=== PATIENT | male | born 1955 | race Caucasian/White ===

== ENCOUNTER 2019-02-19 09:10 | Emergency (ER) | payer OTHER ==
[~2019-02-19] VITALS: Ht 182.9 cm; Wt 86.2 kg
[2019-02-19 10:16] LABS: Basophils # (auto) 0 uL; Basophils % (auto) 0.3 % (0.0-2.0); Eosinophils # (auto) 0.5 uL; Eosinophils % (auto) 4.2 % (0.0-7.0); Hematocrit 46.2 % (41.0-53.0); Hemoglobin 15.7 g/dL (13.5-17.5); Lymphocytes # (auto) 2.8 uL; Lymphocytes % (auto) 25.6 % (10.0-50.0); Mean Corpuscular Hemoglobin 32.1 pg (28.0-32.0); Mean Corpuscular Hgb Conc. 33.9 g/dL (32.0-36.0); Mean Corpuscular Volume 94.4 fL (80.0-100.0); Monocytes # (auto) 0.6 uL; Monocytes % (auto) 5.6 % (0.0-12.0); Neutrophils # (auto) 7.1 uL; Neutrophils % (auto) 64.3 % (37.0-80.0); Nucleated Red Blood Cells % 0.1 %; Platelet Count (auto) 176 10^3/uL (140-450); Red Blood Cells 4.89 10^6/uL (4.5-5.90); Red Cell Distribution Width 13.1 % (11.8-14.3)
[2019-02-19] MEDS ORDERED: SODIUM CHLORIDE 0.9% 500 ML IV ONE (10:25)
[2019-02-19 10:26] LABS: Albumin 4.1 g/dL (3.4-5.0); BUN/Creatinine Ratio 9.6; Calcium 8.9 mg/dL (8.5-10.1); Potassium 3.7 mmol/L (3.5-5.1)
[2019-02-19 10:29] LABS: Bilirubin, Total 0.9 mg/dL (0.2-1.0); Total Protein 7.4 g/dL (6.4-8.2)
[2019-02-19] MEDS ORDERED: ALBUTEROL SULF 2.5 MG/0.5ML(0.5%) NEB SOLN HHN ONE ×2 (10:30→13:15)
[2019-02-19] MEDS ORDERED: IPRATROPIUM BROM 0.5 MG/2.5ML INH SOL HHN ONE (10:30)
[2019-02-19] MEDS ORDERED: LEVOFLOXACIN 500MG 100 ML IV ONE (10:30)
[2019-02-19] MEDS ORDERED: methylPREDNISolone SOD SUCC 125 MG/2 ML VL IV ONE (10:30)
[2019-02-19 11:41] LABS: INR 0.97 (0.9-1.15); Partial Thromboplastin Time 24.5 sec (23.64-32.05)
[2019-02-19] MEDS ORDERED: IOHEXOL 350 MG/ML 100ML IJ ONE (12:20)
[2019-02-19] MEDS ORDERED: ALBUTEROL SULF 2.5 MG/0.5ML(0.5%) NEB SOLN NEB ONE (15:00)
[2019-02-19 17:07] VITALS: BP 146/84
== END 2019-02-19 17:22 | disposition short-term general hospital (02) ==
LOC: EDBD 09:10 → ER 09:20
DX: J40 Bronchitis, not specified as acute or chronic (principal); R09.02 Hypoxemia; E78.5 Hyperlipidemia, unspecified; J44.9 Chronic obstructive pulmonary disease, unspecified; F11.10 Opioid abuse, uncomplicated
CPT/HCPCS: 36415; 36600; 71046; 71275; 80053; 82805; 83880; 84484; 85025; 85379; 85610; 85730; 87040; 93005; 94640; 94761; 96365; 96375; 99285; J1956; J2930; J7030; J7611; J7644; Q9967

== ENCOUNTER 2020-07-27 00:47 | Observation (INO) | payer MEDICARE, OTHER ==
[~2020-07-27] VITALS: Ht 182.9 cm; Wt 86.0 kg
[2020-07-27] MEDS ORDERED: ONDANSETRON HCL 4 MG/2 ML VIAL IV ONE (03:15)
[2020-07-27] MEDS ORDERED: MORPHINE SULFATE 4 MG/ML SYR/VIAL IV ONE (03:15)
[2020-07-27 03:20] LABS: Urine WBC None Seen /hpf (0 - 3)
[2020-07-27 03:34] LABS: Urine Bacteria FEW /hpf (None Seen); Urine Blood Negative /uL (Negative); Urine Specific Gravity 1.014 (1.001-1.035)
[2020-07-27 04:14] LABS: Basophils # (auto) 0 10 ^3/uL (0-0.2); Basophils % (auto) 0.3 % (0.0-2.0); Eosinophils # (auto) 0.4 10 ^3/uL (0-0.8); Eosinophils % (auto) 2.4 % (0.0-7.0); Hemoglobin 14.6 g/dL (13.5-17.5); Lymphocytes # (auto) 1.6 10 ^3/uL (0.4-5.4); Lymphocytes % (auto) 10.2 % (10.0-50.0); Mean Corpuscular Hemoglobin 31.5 pg (28.0-32.0); Mean Corpuscular Hgb Conc. 33.9 g/dL (32.0-36.0); Mean Corpuscular Volume 92.9 fL (80.0-100.0); Monocytes # (auto) 1.1 10 ^3/uL (0-1.3); Monocytes % (auto) 7.3 % (0.0-12.0); Neutrophils # (auto) 12.4 10 ^3/uL (1.6-8.6); Neutrophils % (auto) 79.8 % (37.0-80.0); Nucleated Red Blood Cells % 0.1 %; Platelet Count (auto) 175 10^3/uL (140-450); Red Blood Cells 4.63 10^6/uL (4.5-5.90); Red Cell Distribution Width 12.6 % (11.8-14.3); White Blood Cell 15.6 10^3/uL (4.4-10.8)
[2020-07-27 04:33] LABS: Albumin 4.1 g/dL (3.4-5.0); Calcium 8.8 mg/dL (8.5-10.1); Magnesium 2.2 mg/dL (1.6-2.6); Potassium 3.9 mmol/L (3.5-5.1)
[2020-07-27 04:34] LABS: BUN/Creatinine Ratio 11.4
[2020-07-27 04:37] LABS: Bilirubin, Total 0.7 mg/dL (0.2-1.0); Total Protein 7.5 g/dL (6.4-8.2)
[2020-07-27 05:01] LABS: INR 0.95 (0.9-1.15)
[2020-07-27] MEDS ORDERED: AMLO5TAB15 PO (06:29)
[2020-07-27] MEDS ORDERED: TRAZ-181 PO (06:29)
[2020-07-27] MEDS ORDERED: LOS25T PO (06:29)
[2020-07-27] MEDS ORDERED: TRAZ50TA2 PO (06:29)
[2020-07-27] MEDS ORDERED: ATOR20TA50 PO (06:29)
[2020-07-27] MEDS ORDERED: ONDANSETRON HCL 4 MG/2 ML VIAL IV PRN (06:30)
[2020-07-27] MEDS ORDERED: TEMAZEPAM 15 MG CAP PO PRN (06:30)
[2020-07-27] MEDS ORDERED: NITROGLYCERIN 0.4 MG SL TAB SL PRN (06:30)
[2020-07-27] MEDS ORDERED: DOCUSATE SOD 100 MG CAP PO PRN (06:30)
[2020-07-27] MEDS ORDERED: MORPHINE SULFATE 4 MG/ML SYR/VIAL IV PRN (06:30)
[2020-07-27] MEDS ORDERED: MORPHINE SULF INJ 2 MG/ML SYRINGE 1ML IV PRN (06:30)
[2020-07-27 08:33] LABS: Amphetamine Screen, Urine POSITIVE (NEGATIVE); Barbiturate Scree,Urine NEGATIVE (NEGATIVE); Benzodiazephine Screen, Urine NEGATIVE (NEGATIVE); Cannabinoid Screen, Urine POSITIVE (NEGATIVE); Cocaine Screen, Urine NEGATIVE (NEGATIVE); Opiate Scree,Urine POSITIVE (NEGATIVE); Phencyclidine Screen, Urine NEGATIVE (NEGATIVE)
[2020-07-27 08:46] LABS: Alcohol, Urine < 3.0 mg/dL (0-10)
[2020-07-27] MEDS: amLODIPine BESYLATE 5 MG TAB PO SCH (10:05)
[2020-07-27] MEDS: LOSARTAN POTASSIUM 25 MG TAB PO SCH (10:05)
[2020-07-27] MEDS: FAMOTIDINE 20 MG TAB PO SCH ×2 (10:06→20:37)
[2020-07-27] MEDS ORDERED: GADOTERATE MEG 10 MMOL/20ml INJ (0.5MMOL/ml) IV ONE (12:47)
[2020-07-27 17:00] VITALS: BP 129/88
[2020-07-27 17:40] VITALS: BP 129/88
[2020-07-27] MEDS ORDERED: MELO1TAB73 PO (18:13)
[2020-07-27] MEDS ORDERED: LACTULOSE 20Gm/30ML SOLN PO ONE (20:00)
[2020-07-27] MEDS ORDERED: hydrALAZINE HCL 20 MG/ML VL IV PRN (20:00)
[2020-07-27] MEDS: HYDROcodone-ACET 5/325MG TAB PO PRN (20:31)
[2020-07-27] MEDS: GABAPENTIN 100 MG CAP PO SCH (20:37)
[2020-07-27] MEDS ORDERED: ATORVASTATIN 20 MG TAB PO SCH (22:00)
[2020-07-28 05:00] VITALS: BP 118/72
[2020-07-28 05:42] LABS: Basophils # (auto) 0.1 10 ^3/uL (0-0.2); Basophils % (auto) 0.5 % (0.0-2.0); Eosinophils # (auto) 0.1 10 ^3/uL (0-0.8); Eosinophils % (auto) 1.2 % (0.0-7.0); Hematocrit 41.5 % (41.0-53.0); Hemoglobin 14.3 g/dL (13.5-17.5); Lymphocytes # (auto) 1.9 10 ^3/uL (0.4-5.4); Lymphocytes % (auto) 17.2 % (10.0-50.0); Mean Corpuscular Hemoglobin 31.7 pg (28.0-32.0); Mean Corpuscular Hgb Conc. 34.4 g/dL (32.0-36.0); Monocytes % (auto) 9.1 % (0.0-12.0); Neutrophils # (auto) 7.8 10 ^3/uL (1.6-8.6); Nucleated Red Blood Cells % 0.1 %; Platelet Count (auto) 174 10^3/uL (140-450); Red Blood Cells 4.52 10^6/uL (4.5-5.90); White Blood Cell 10.8 10^3/uL (4.4-10.8)
[2020-07-28 06:00] LABS: Albumin 3.1 g/dL (3.4-5.0); Calcium 8.7 mg/dL (8.5-10.1); Potassium 3.5 mmol/L (3.5-5.1)
[2020-07-28 06:03] LABS: BUN/Creatinine Ratio 16.3; Bilirubin, Total 0.8 mg/dL (0.2-1.0); Total Protein 6.3 g/dL (6.4-8.2)
[2020-07-28 08:00] VITALS: BP 112/71
[2020-07-28 08:55] VITALS: BP 112/71
[2020-07-28] MEDS: HYDROcodone-ACET 5/325MG TAB PO PRN (09:21)
[2020-07-28] MEDS: GABAPENTIN 100 MG CAP PO SCH (09:22)
[2020-07-28] MEDS: amLODIPine BESYLATE 5 MG TAB PO SCH (09:22)
[2020-07-28] MEDS: LOSARTAN POTASSIUM 25 MG TAB PO SCH (09:22)
[2020-07-28] MEDS: FAMOTIDINE 20 MG TAB PO SCH (09:23)
[2020-07-28] MEDS ORDERED: LACTULOSE 20Gm/30ML SOLN PO SCH (10:00)
[2020-07-28 13:00] VITALS: BP 114/81
[2020-07-28 16:47] VITALS: BP 121/75
[2020-07-28 17:33] VITALS: BP 121/75
== END 2020-07-28 18:17 | disposition home or self-care (01) ==
LOC: EDBD 00:47 → ER 00:54 → TELE 00:55 → INTOOBSV 00:55 → TELE-WESTW 15:33
PROVIDERS: ADMIT Nurse Practitioner; ATTEND Nurse Practitioner
DX: N28.89 Other specified disorders of kidney and ureter (principal); I87.8 Other specified disorders of veins; I10 Essential (primary) hypertension; K57.30 Diverticulosis of large intestine without perforation or abscess without bleeding; F11.10 Opioid abuse, uncomplicated; F15.10 Other stimulant abuse, uncomplicated; K59.00 Constipation, unspecified; D84.9 Immunodeficiency, unspecified; J40 Bronchitis, not specified as acute or chronic; F10.20 Alcohol dependence, uncomplicated; R09.02 Hypoxemia; C64.9 Malignant neoplasm of unspecified kidney, except renal pelvis; E78.5 Hyperlipidemia, unspecified; K40.20 Bilateral inguinal hernia, without obstruction or gangrene, not specified as recurrent; N28.1 Cyst of kidney, acquired; J44.9 Chronic obstructive pulmonary disease, unspecified
CPT/HCPCS: 36415; 74176; 74183; 76775; 80053; 80307; 81001; 82150; 83690; 83735; 85025; 85610; 85730; 93005; 96374; 99285; A9575; G0378; J2405